=== PATIENT | female | born 1930 | race Caucasian/White ===

== ENCOUNTER 2016-06-09 01:09 | Day surgery (SDC) | payer MEDICARE, OTHER ==
[~2016-06-09] VITALS: Ht 162.6 cm; Wt 73.8 kg
[2016-06-09] VITALS (14 sets, daily range): BP systolic 136–187; BP diastolic 61–86; PULSE 60–93; RESP 12–20; O2SAT 95–98
[~2016-06-09 01:09] MED LIST: AMLO5TAB2 PO; ASPI-973 PO; CALCIT PO; CHOL200047 PO; CYAN500 PO; INDA2.5T2 PO; LISI-567 PO; MAGN500C16 PO; METO-272 PO
[2016-06-09] MEDS ORDERED: CeFAZolin Inj 2 GM in IV Premix 1 EACH IV ONE (06:00)
[2016-06-09] MEDS ORDERED: 0.9% Sodium Chloride 1,000 ML IV PRN (07:12)
[2016-06-09] MEDS ORDERED: CeFAZolin Inj 2 gm / 50mL D5W IV ONE (09:28)
[2016-06-09] MEDS ORDERED: 0.9% Sodium Chloride 250 ML ONE (10:38)
[2016-06-09] MEDS ORDERED: Heparin 5,000 Unit/mL Inj ONE (10:38)
[2016-06-09] MEDS ORDERED: Bupivacaine-MPF 0.5% 30 mL Inj ONE (10:39)
[2016-06-09] MEDS ORDERED: 0.9% Sodium Chloride 500 ML ONE (10:39)
[2016-06-09] MEDS ORDERED: fentaNYL-PF 50 mCg/mL 2 mL Inj ONE (10:53)
[2016-06-09] MEDS ORDERED: Ondansetron 2 mg/mL 2 mL Inj IVPUSH PRN (12:40)
[2016-06-09] MEDS ORDERED: HYDROcodone-APAP 5-325 mg Tablet PO PRN (12:40)
[2016-06-09] MEDS ORDERED: 0.9% Sodium Chloride 1,000 ML IV SCH (12:40)
--- NOTE | 2016-06-09 14:29 | DRSVH ---
PROCEDURE: X-RAY CHEST ONE VIEW, PORTABLE ([id number]) INDICATIONS: For new leads placed TECHNIQUE: One view of the chest was acquired. COMPARISON: None. FINDINGS: Surgical changes and devices: Single chamber cardiac pacer present in expected position.. Lungs and pleura: No pleural effusions or pneumothorax. Lungs are clear. Mediastinum: Mediastinal contours appear normal. Heart size is enlarged. Bones and chest wall: No suspicious bony lesions. Overlying soft tissues appear unremarkable. IMPRESSION: No immediate complications status post cardiac pacemaker placement. Dictated by: Charlie Valverde [facility] Interpreted: Leesa Reece MD on 06/09/2016 at 14:29 Transcribed by: KEI on 06/09/2016 at 14:29 Approved by: Leesa Reece MD, PhD on 06/09/2016 at 17:10
--- NOTE | 2016-06-09 15:33 | NUR ---
[facility] Pt arrived to [facility] around 0830, accompanied by son and . IVs placed X2 and labs sent and admission completed. Pt taken to [employer] laborer for pacemaker placement at 1045; returned at 1250. Ice to left arm. Mild drainage to dressing, w/out change throughout recovery. Vitals stable, other than hypertension (SBP 160-180s). MD notified that pt didn't take morning meds; med rec completed and pt to be given meds when available from pharmacy. Pt taken to room 3011 at 1515 and bedside report given to primary RN.
[2016-06-09] MEDS: MeTOProlol XL 50 mg ER24 Tablet PO SCH (17:28)
--- NOTE | 2016-06-09 18:43 | NUR ---
Mentation patient is alert and oriented X3. patient is transfer from [facility] approx 1515. Report received from [facility] nurse at bed side. family at bed side. Called pharmacy for new orders per Dr. Mike. Elevated BP and BP medications given as ordered due to missed doses this morning per [facility] report. Denies pain or discomfort at the left dressing site. minimal dry serous Sanguinous drainage noted. no swelling around the dressing site noted. Left is secured with sling as ordered. pharmacy called that Lozol 2.5 mg is not available and ask the patient if could bring from home and patient agrees. Family will bring this medication tonight and will let primary care nurse. Report given to on coming primary nurse and aware. Call light with in reach for safety and continue to monitor for vital signs, pain, sign and symptoms of infection to left dressing site.
[2016-06-09] MEDS: INDAPAMIDE 2.5 MG PO SCH (19:25)
[2016-06-09 20:20] LABS: APPEARANCE,URINE CLEAR (CLEAR,HAZY); COLOR,URINE YELLOW (YELLOW); OCCULT BLOOD,URINE NEGATIVE (NEGATIVE); UROBILINOGEN,URINE NORMAL (NORMAL)
--- NOTE | 2016-06-09 20:37 | NUR ---
Home medication/Pacemaker Site Pt. son brought in Lozol (Indapamide) 2.5mg medication. This medication was brought by primary RN to pharmacy to have them relabel for patient use. Medication now in patient drawer and needs to be sent home with patient at discharge. Pt. and pts. family updated on plan of care. Dressing to left pacemaker site has small amount of dried serousanguinous drainage. Some reddness and mild bruising noted under dressing near axilla. Pt. denies pain or tenderness at site. Left arm in sling and pt. educated to leave on.
[2016-06-10 00:13] VITALS: BP 144/77; PULSE 68; RESP 18; O2SAT 94
[2016-06-10] MEDS: Sodium Chloride LOK Flush 10 mL Syringe IVFLUSH SCH ×2 (00:30→09:24)
--- NOTE | 2016-06-10 03:22 | NUR ---
PAIN Pt. reports generalized chest soreness rated 3/10. Denied pain medication or Tylenol. Ice placed on site. Pt. denies SOB. Pacemaker site is unchanged from previous assessment.
[2016-06-10 04:38] VITALS: BP 138/72; PULSE 62; RESP 18; O2SAT 94
[2016-06-10 06:14] VITALS: PULSE 62
--- NOTE | 2016-06-10 06:36 | NUR ---
CONFUSION Pt. confused this am. States her brain feels fuzzy. Pt. able to state she is in the [facility]. Able to reorient her to her pacemaker surgery. Pt. was then able to tell me her MD (Dr. Mike). Pt. asked about her . Reassured her that he had gone home to sleep. Pt. then remembered that her [id number] and son had come in to visit. Pt. had not slept well during the night. Speech is clear. Plan of care-chest xray and probably discharging home-explained to pt. Bed alarm on for safety. Day shift and charge notified of confusion.
[2016-06-10 09:13] VITALS: BP 125/71; PULSE 60; RESP 20; O2SAT 94
[2016-06-10] MEDS: MeTOProlol XL 50 mg ER24 Tablet PO SCH (09:23)
[2016-06-10] MEDS: INDAPAMIDE 2.5 MG PO SCH (09:24)
[2016-06-10 09:28] VITALS: PULSE 65
--- NOTE | 2016-06-10 10:04 | OUT PROC ---
[address] [address] PROCEDURE NOTE PATIENT: QUINN DUQUE : 1930 MR#: [id number] ADMIT: 06/09/2016 JOB ID: [id number] DATE OF PROCEDURE: 06/09/2016 PROCEDURE: 1. Single chamber permanent pacemaker implantation. 2. Ultrasound guided venous access. CONSENT: The patient was explained the risks, benefits and alternatives of the procedure. Informed signed consent was obtained and placed on the chart. DESCRIPTION OF PROCEDURE: The patient was brought to the cath laboratory and placed on the cath table. Left infraclavicular area was prepped and draped in the usual sterile manner for a permanent pacemaker implantation. An ultrasound was performed to map the course of the left subclavian vein. The 1% lidocaine was infiltrated around the anatomical landmarks. Topical anesthesia was achieved. Under direct ultrasound guidance left subclavian vein was accessed and a micropuncture wire was inserted through the needle. The wire was advanced into the SVC and the needle was withdrawn. Subsequently, a dilator was inserted over the guidewire into the subclavian vein and the micropuncture wire was withdrawn and exchanged with a long J wire, and placed in the high IVC. Subsequently, an approximately 2-3 inch long incision was made one finger below the lateral third of the clavicle and medial to the deltopectoral groove. The skin and subcutaneous layer was dissected. Hemostasis was achieved with local pressure as well as electrocautery. The prepectoral fascia was identified. The pacemaker pocket was further created and and the skin and the subcutaneous layer was from the prepectoralis fascia. Subsequently, the wire was pulled out of the skin and it was placed in the pacemaker pocket. A venous sheath was advanced over the J wire under direct fluoroscopy. Subsequently, a 52 cm right ventricular lead was advanced under direct fluoroscopy. The lead was advanced across the tricuspid valve and placed in the right ventricular outflow tract. A straight stylus was advanced into the right ventricular lead. The tip of the lead was placed in the right ventricular apex/septal junction. The lead was actively fixated. Good energy and current was noted. Sensing was 8-10 mV with a pacing threshold of 0.5-0.9. The venous sheath was peeled off the pacemaker wire. The pacemaker was anchored to the prepectoral fascia using the sleeve. The stylus was withdrawn. The lead was anchored to the prepectoralis fascia. The pocket was irrigated with antibiotic solution. Subsequently, the pacemaker lead was connected to the pacemaker generator. ADSR 01, serial number [id number]. Good sensing and pacing parameters were obtained. The generator was placed in the pacemaker pocket. The generator was anchored to the prepectoralis fascia and was secured. Final image was obtained, making sure there was adequate slack as well generator was secured in the pacemaker pocket. The subcutaneous layer was closed with a 3-0 Vicryl. The subcuticular layer and skin was closed with a 4-0 Vicryl absorbable sutures. Steri-Strips were applied. There was no hematoma noted. The patient was taken out of the cath laboratory in stable condition. FLUORO TIME: 5.6 minutes. COMPLICATIONS: No complications. DEVICE IDENTIFICATION: Medtronic generator, model ADSR 01, serial number [id number] Plexxtronic. The right ventricular lead, model 525228 cm, serial number [id number]. Stimulation thresholds bipolar, threshold of 0.4 V. Impedance 1171. R-wave of 7.7 mV. The parameters low rate at 60 beats per minute, upper rate 110. Amplitude of 3.5 V with a pulse width of 40 msec and sensitivity at 2.8 mV. IMPRESSION: Successful single chamber permanent pacemaker implantation. MARIA D
--- NOTE | 2016-06-10 10:17 | PCM.DIMED ---
Discharge Instructions Date of Service Jun 10, 2016 Dates of Hospitalization 06/09/2016 Discharge Diagnosis Discharge Diagnosis 06/10/2016 Diet Heart Healthy Activity Other (No driving for one month. No reaching above your head. No lifting greater than 10 LBS. Wash the incision site with mild soap and warm water.) Call your provider Fever or Chills, Shortness of breath, Bleeding, Chest pain, Other (If there is redness, swelling, bleeding/discharge, or pain not relieved with over the counter pain medications [facility] at [phone]) Michael Villalobos PA-C Jun 10, 2016 10:17
--- NOTE | 2016-06-10 11:24 | NUR ---
Social Work attempted assessment/discharge: Data:EMR REviewed. Pt is a 85 y/o female who was admitted for a flutter per H&P. SW attempted to see pt to complete assessment,SW updated that pt has already discharged home with family. Pt has been up independent in her room. No discharge needs identified. All updated and agreeable to plan. Assessment:Pt who is independent at baseline. Plan:Pt to discharge home today via pOV. No discharge needs identified. All updated and agreeable to plan. LUIS MIGUEL Shaffer
--- NOTE | 2016-06-10 12:23 | NUR ---
Discharge Pt discharged home with daughter via private vehicle. Pt verbalized understanding of discharge, follow up and wound care instructions, belongings accounted for and left with pt.
--- NOTE | 2016-06-10 13:18 | DRSVH ---
PROCEDURE: X-RAY CHEST, TWO VIEWS ([id number]) INDICATIONS: For new lead placement TECHNIQUE: 2 views of the chest were acquired. COMPARISON: [facility], CR, XR CHEST 1VW (PORTABLE), 06/09/2016, 12:57. FINDINGS: Surgical changes and devices: There is a left chest wall single lead pacemaker with the lead projecti ng over the right ventricle Lungs and pleura: No pleural effusions or pneumothorax. There is left basilar pleural thickening no haroon. There is mild interstitial prominence again noted in the lung bases. No definite acute consolid ation. There is hyperinflation of the lungs with flattening of the hemidiaphragms compatible with SITE INTERPRETER D. Mediastinum: Mediastinal contours are normal. Heart size is enlarged. Bones and chest wall: No suspicious bony abnormalities. Soft tissues appear unremarkable. IMPRESSION: 1. New pacemaker lead projects over the right ventricle. 2. No evidence of pneumothorax. Dictated by: Edgar Saenz M.D. on 06/10/2016 at 13:14 Approved by: Edgar Saenz M.D. on 06/10/2016 at 13:16
--- NOTE | 2016-06-12 15:22 | DIS ---
[address] [address] DISCHARGE SUMMARY PATIENT: QUINN DUQUE : 1930 MR#: [id number] ADMIT: 06/09/2016 JOB ID: [id number] DIS: 06/10/2016 PROCEDURE: Single-chamber permanent pacemaker implantation. Left subclavian venography. BRIEF HISTORY: The patient is a delightful, 85-year-old who has a history of symptomatic atrial flutter. A 24-hour Holter monitor revealed poor conduction through the AV node with 46 pauses exceeding 2 seconds. As such, she was scheduled for a single-chamber pacemaker implantation. HOSPITAL STAY: The patient was scheduled for the incinerator plant laborer where the above-mentioned procedure was carried out. There were no complications. After the procedure, she was admitted to the [facility] for observation where she did well. At discharge, her incision was clean, dry, and intact. There was no bleeding or signs of infection. There was no crepitus at the site of the incision or the neck or the left chest. Chest x-ray revealed that the V-pacing wire was in place and that there was no pneumothorax. Ventricular impedance was 813. R-waves were 11.2-15.68 mV. Ventricular threshold was at 0.5 at 0.4 msec. She was V-pacing at 90%. DISCHARGE MEDICATIONS: 1. Amlodipine 5 mg daily. 2. Aspirin 81 mg daily. 3. Calcium citrate 500 mg daily. 4. Vitamin D3 2000 units daily. 5. Vitamin B12 1000 mcg daily. 6. Indapamide 2.5 mg daily. 7. Lisinopril 20 mg daily. 8. Magnesium oxide 500 mg daily. 9. Metoprolol 50 mg daily. DISPOSITION AND DISCHARGE INSTRUCTIONS: The patient was discharged to her home and placed under the care of her family with the following instructions. 1. Diet: Eat a healthy heart diet. 2. Activity: No driving for one month. No reaching above your head. No lifting greater than 10 pounds. Wash the incision site with mild soap and warm water. 3. Call your provider if you feel fevers, chills, shortness of breath, bleeding, chest pain. If there is redness, swelling, bleeding, discharge or pain not relieved by [id number] medications at the site of the incision, call [facility] at [phone].
== END 2016-06-10 10:50 | disposition home or self-care (01) ==
LOC: SOUO 01:09 → MPC 16:10 → SOUO 06-10 10:50
PROVIDERS: ATTEND Internal Medicine Cardiovascular Disease
DX: I48.4 Atypical atrial flutter (principal); I10 Essential (primary) hypertension; I34.0 Nonrheumatic mitral (valve) insufficiency; Z79.82 Long term (current) use of aspirin
CPT/HCPCS: 33207; 36415; 71010; 71020; 80048; 81000; 93005; 99152; 99153; C1769; C1786; C1892; C1898; J0690; J1644; J2250; J3010; J7030; J7040; J7050